=== PATIENT | female | born 1995 | race African-American/Black ===

== ENCOUNTER 2023-05-15 20:48 | Emergency (ER) | payer OTHER ==
[~2023-05-15 20:48] MED LIST: Iopamidol 300 61% 100 ML VIAL FS ONE
[2023-05-15] MEDS ORDERED: Morphine 4 MG/ML VIAL ONE ×2 (21:45→23:58)
[2023-05-15] MEDS ORDERED: Ondansetron PF 4 MG/2 ML Vial ONE ×2 (21:46→23:58)
[2023-05-15 22:07] LABS: #Eosinphils 0.1 10x3/uL (0.0-0.5); #Monocytes 0.7 10x3/uL (0.0-1.1); #Neutrophils 1.9 10x3/uL (1.5-8.4); %Basophils 0.2 % (0.0-2.0); %Eosinophils 1.6 % (0.0-6.0); %Lymphocytes 38.1 % (18.0-47.0); %Monocytes 16.6 % (0.0-10.0); %Neutrophils 43.3 % (40.0-75.0); BHCG - Serum Negative (NEGATIVE); Hematocrit 37.3 % (34.9-44.5); Hemoglobin 12.7 g/dL (12.0-15.5); Mean Corpuscular Volume 88.2 fl (81.6-98.3); Mean Platelet Volume 13.2 fl (7.4-10.4); Platelet Count 144 10x3/uL (150-450); Pregs Control Background? CLEAR/WHITE (CLR/WHITE); Pregs Control Bar Appear? YES (CONTROL BAR); RBC Distribution Width 12.3 % (11.5-14.5); Red Blood Cell (RBC) Count 4.23 10x6/uL (3.90-5.03); White Blood Cell (WBC) Count 4.4 10x3/uL (3.5-10.5)
[2023-05-15 22:10] LABS: Bilirubin 1+ (Negative); Blood, Urine 10 (Negative); Clarity Cloudy (Clear); Glucose, Urine (Dipstick) Normal (Negative); Ketone, Urine 150 mg/dL (Negative); Leukocyte 500 (Negative); Nitrite Negative (Negative); Protein, Urine (Dipstick) 30 mg/dl (Neg-Trace)
[2023-05-15 22:12] LABS: ALT (SGPT) 27 U/L (8-55); AST (SGOT) 26 U/L (5-34); Albumin 3.7 g/dL (3.5-5.0); Alkaline Phosphatase 59 U/L (40-110); Anion Gap 19 mmol/L (10-20); BUN (Urea Nitrogen) 9 mg/dL (7.0-18.7); Bilirubin, Total 0.7 mg/dL (0.2-1.2); Calc. Creatinine Clearance 0 mL/min (70-130); Calcium 8.7 mg/dL (7.8-10.44); Carbon Dioxide 22 mmol/L (22-29); Chloride 103 mmol/L (98-107); Estimated GFR 113; Globulin 3.4 g/dL (2.4-3.5); Glucose 79 mg/dL (70-105); Lipase 71 U/L (8-78); Potassium 3.6 mmol/L (3.5-5.1); Protein, Total 7.1 g/dL (6.0-8.3); Sodium 140 mmol/L (136-145)
[2023-05-15 22:15] LABS: Troponin I Less than 0.010 ng/mL (< 0.028)
[2023-05-15 22:22] LABS: Bacteria/HPF 1+ HPF (None Seen); CAUTI Indications for Culture Dysuria,urgency,freq
[2023-05-15 22:23] LABS: Renal Epithelial 0-3 HPF (None Seen)
[2023-05-15 22:26] LABS: Urine Culture Reflex Yes Yes
[2023-05-15] MEDS ORDERED: Sulfameth/Trimethoprim DS 800-160mg TAB ONE (23:58)
[2023-05-16] MEDS ORDERED: Promethazine 25 MG TAB ONE (01:15)
[2023-05-16] MEDS ORDERED: HYDROcodone/Acetaminophen 5/325 mg Tablet ONE (01:15)
== END 2023-05-16 01:47 | disposition home or self-care (01) ==
LOC: CSHERS 20:48
DX: R11.2 Nausea with vomiting, unspecified (principal); N30.01 Acute cystitis with hematuria; E66.9 Obesity, unspecified
CPT/HCPCS: 36415; 74177; 80053; 81001; 83690; 84484; 84703; 85025; 87086; 93005; 96374; 96375; 96376; J2270; J2405; Q0169; Q9967